=== PATIENT | female | born 1985 | race Two or more races ===

== ENCOUNTER 2024-09-04 12:58 | Emergency (ER) | payer MEDICAID, SELFPAY ==
[2024-09-04 12:58] VITALS: BMI 24.9
[2024-09-04 13:35] VITALS: BP 97/60; PULSE 92; RESP 18; TEMP 37.2; O2SAT 98
--- NOTE | 2024-09-04 13:53 | XR_ITS ---
Examination: PA lateral chest 2 views Technique: Upright PA lateral chest 2 views Date and time: September 04, 2024 1414 hrs. Indications: Coughing 3 days. Findings: Diffuse right lung and left base pneumonia Minor prominence left ventricle Mild osteopenia Impression: Significant bilateral pneumonia
--- NOTE | 2024-09-04 13:54 | EDNOTE_ITS ---
ED SOB =RME/HPI General Chief Complaint: Shortness of Breath/Dyspnea Stated Complaint: SOB/CHEST PAIN SEND BY PMD Time Seen by Provider: 09/04/24 13:13 Arrival date/time: 09/04/24 12:58 This is a 39-year-old female that comes into the emergency room with complaints of chest pain and shortness of breath. Patient states she has had a fever and a cough for the past week. Patient was sent by primary provider to get a chest x- ray. Patient reports diarrhea. Patient states she was tested for COVID and for flu and it was negative at the clinic. Patient was given Tylenol prior to leaving the clinic. Related Data Home Medications ?Medication ?Instructions ?Recorded ?Confirmed prenat.vits,korina,[id number] 1 tab PO QDAY 01/03/18 06/23/21 ( Vitamin tablet) Previous Rx's ?Medication ?Instructions ?Recorded azithromycin 250 mg tablet See Rx Instructions PO .COM PLEX #6 09/04/24 tabs ibuprofen 800 mg tablet 800 mg PO Q6H PRN pain #14 t abs 09/04/24 Allergies Allergy/AdvReac Type Severity Reaction Status Date / Time No Known Allergies Allergy Verified 09/04/24 13:02 Review of Systems Review of Systems Systems Reviewed: All systems reviewed, normal except as documented Past Medical History Surgical History SURGICAL: Negative Section ED Exam Narrative Physical exam: VITAL SIGNS: Reviewed. GENERAL APPEARANCE: Alert and interactive, follows commands, no acute distress, HEAD AND FACE: Non-traumatic. ENT: PERRL, conjuctiva pink and clear, eyelid no trauma, Mucous membrane moist. NECK: Supple, nontender, no nuchal rigidity. CHEST: No tenderness, no crepitus, no paradoxical movement, no retractions. LUNGS: Clear, well ventilated, symmetric, no rales, no wheezing, no rhonchi, no stridor, good breath sounds bilaterally. HEART: Regular rate, regular rhythm, no murmur, no gallops. ABDOMEN: Soft, nondistended, no guarding, nontender NEUROLOGICAL: Gross motor function intact sensory function intact, Appropriate for age. MUSCULOSKELETAL: low back nontender, full range of motion. EXTREMITIES: No redness no swelling no skin breakdown on bilateral foot and leg. Distal neurovascular status intact bilateral foot SKIN: Color pink, dry, no rash, no lacerations, no abrasions, no contusions. Course Quality Measures none Orders Category Date Time Status XR chest 2V Stat Exams 09/04/24 13:53 Completed Vital Signs Vital signs: Vital Signs Temperature 99 F 09/04/24 13:35 Pulse Rate 92 09/04/24 13:35 Respiratory Rate 18 09/04/24 13:35 Blood Pressure 97/60 09/04/24 13:35 Pulse Oximetry (%) 98 09/04/24 13:35 Oxygen Delivery Method Room Air 09/04/24 13:35 Shortness of Breath / Dyspnea MDM Narrative MDM Narrative:: Patient eloped at 1624. I went to go talk to patient to get further results and to let her know I prescribed her some antibiotics. Can offer her a Rocephin shot while she is here. Patient eloped out of the emergency room. I did send a prescription for antibiotics and I left paperwork upfront if he comes and picks it up. Patient did not wait to get results of x-ray. CHEST XRAY: Findings: Diffuse right lung and left base pneumonia Minor prominence left ventricle Mild osteopenia Impression: Significant bilateral pneumonia Patient data External records reviewed:: [facility] previous records Clinical information provided by:: patient Social determinants that could affect healthcare access:: none Patient has the following chronic illnesses:: none How is presenting disease/condition affected by chronic disease/condition?: no chronic disease Evaluation data The following diagnostics were reviewed and interpreted by me:: radiology exam(s) Lab and/or radiology exams considered but not ordered:: none Interpretation Summary: see note Medications / Prescriptions Medications or Prescriptions considered but not ordered:: none Medication administrations:: none Consultations Consultation(s) initiated? (list below): No Diagnosis Shortness of Breath Differential Diagnosis: acute exacerbation of chronic obstructive airways disease, congestive heart failure, community acquired pneumonia and asthma with exacerbation Most likely diagnosis given after review of the tests above:: pneumonia Admission Indicated Admission indicated?: not indicated Admission Request Was there a request for admission?: No Disposition Plan Disposition Plan: other (specify) (eloped ) Discharge Plan Plan Patient Disposition: Elopement Patient condition on transfer: Stable Prescriptions/Referrals Prescriptions/Med Rec: New ibuprofen 800 mg tablet 800 mg PO Q6H PRN (Reason: pain) Qty: 14 0RF azithromycin 250 mg tablet See Rx Instructions .ROUTE .COMPLEX Qty: 6 0RF Rx Instructions: For 250 mg dose pack: take 500 mg today (day 1), then 250 mg for 4 days (days 2-5) No Action Vitamin Tablet 1 tab PO QDAY Problem List Clinical Impression: Pneumonia Patient/Caregiver Discharge Instructions Discharge Activity: activity as tolerated Education Materials: ED Pneumonia (Adult) Additional Instructions: Follow up with primary provider in 1-2 days. Come back to ED if symptoms change or worsen Print Language: Danish PA/DRILLER MACHINE Supervising Physician PA/DRILLER MACHINE Supervising Physician: SHAJI
--- NOTE | 2024-09-04 14:15 | PC.NURSE ---
CALLED FROM [facility]OB[facility] AND NO ANSWER
--- NOTE | 2024-09-04 15:40 | PC.NURSE ---
CALLED FROM [facility]OB[facility] AND NO ANSWER
--- NOTE | 2024-09-04 16:23 | PC.NURSE ---
CALLED FROM [facility]OB[facility] AND NO ANSWER. PT NOT FOUND INSIDE THE E.D. OR OUTSIDE
== END 2024-09-04 16:25 | disposition left against medical advice (07) ==
LOC: SERX 16:39
PROVIDERS: Emergency Provider Emergency Medicine
DX: J18.9 Pneumonia, unspecified organism (principal); Z53.29 Procedure and treatment not carried out because of patient's decision for other reasons
CPT/HCPCS: 71046; 99283